=== PATIENT | female | born 1950 | race Caucasian/White ===

== ENCOUNTER 2018-03-05 12:46 | Emergency (ER) | payer MEDICARE, OTHER ==
[2018-03-05 12:54] VITALS: BP 154/70; PULSE 95; TEMP 98.2; O2SAT 97
[2018-03-05] MEDS ORDERED: ASPI-516 CHEW (13:07)
[2018-03-05] MEDS ORDERED: TEMA15CA PO (13:07)
[2018-03-05] MEDS ORDERED: ATOR10TA15 PO (13:07)
[2018-03-05] MEDS ORDERED: GABA300C5 PO (13:07)
[2018-03-05] MEDS ORDERED: VITACAP7 PO (13:07)
[2018-03-05] MEDS ORDERED: LOSA100T PO (13:07)
[2018-03-05] MEDS ORDERED: VITA100064 PO (13:07)
[2018-03-05] MEDS ORDERED: CALC1TAB12 PO (13:07)
[2018-03-05] MEDS ORDERED: DULO1CAP2 PO (13:07)
[2018-03-05] MEDS ORDERED: MULTTAB67 PO (13:07)
--- NOTE | 2018-03-05 13:17 | PD ---
HPI Chief Complaint: Fall Time Seen by Provider: 13:09 Travel History International Travel<30 days: No Contact w/Intl Traveler<30days: No Traveled to known affect area: No History of Present Illness HPI 68-year-old female presents to the emergency department for evaluation after a trip and fall that occurred just prior to arrival. Patient states she fell and hit her head. She denies LOC. Patient states she takes a baby aspirin daily, but no other anticoagulants. Current pain is 2/10, aching, no radiation. She denies any neck pain or back pain. No chest pain or abdominal pain. No vomiting. Patient has history of hypertension, hyperlipidemia, depression. No exacerbating or alleviating factors. Moderate severity. PFSH Past Medical History Hx Anticoagulant Therapy: Yes (ASA) Depression: Yes High Cholesterol: Yes Fibromyalgia: Yes Hypertension: Yes Social History Alcohol Use: Yes (3-4 BEERS/DAY) Tobacco Use: No Substance Use: No Allergies-Medications (Allergen,Severity, Reaction): Coded Allergies: Penicillins (Verified Allergy, Unknown, 03/05/18) clarithromycin (Verified Allergy, Unknown, 03/05/18) oxycodone (Verified Allergy, Unknown, 03/05/18) Reported Meds & Prescriptions Reported Meds & Active Scripts Active Reported B Complex (B-Complex Vitamins) 1 Cap 1 Cap PO DAILY Gabapentin 300 Mg Cap 300 Mg PO DAILY Vitamin D3 (Cholecalciferol) 1,000 Unit Tab 1,000 Units PO DAILY Multiple Vitamin 1 Tab 1 Tab PO DAILY Aspirin 81 Mg Chew 81 Mg CHEW DAILY Calcium 500 +D (Calcium Carbonate-Cholecalciferol) 500-400 Mg-Unit Tab 1 Tab PO BID Losartan (Losartan Potassium) 100 Mg Tab 100 Mg PO DAILY Temazepam 15 Mg Cap 15 Mg PO HS PRN Duloxetine DR (Duloxetine HCl) 30 Mg Capdr 30 Mg PO BID Atorvastatin (Atorvastatin Calcium) 10 Mg Tab 10 Mg PO HS Review of Systems Except as stated in HPI: all other systems reviewed are Neg Physical Exam Narrative GENERAL: Well-nourished, well-developed female patient, afebrile. SKIN: Focused skin assessment warm/dry. Patient is a 3 cm laceration just above the right eye. HEAD: Normocephalic. EYES: No scleral icterus. No injection or drainage. PERRLA. ENT: Mucosa pink and moist. No erythema or exudates. No uvular edema. No uvular , palatal, or tonsillar deviation. Airway patent. Nasal turbinates appear normal without nasal blood, purulent drainage or septal hematoma. Bilateral tympanic membranes clear without erythema or perforation. NECK: Supple, trachea midline. No JVD or lymphadenopathy. CARDIOVASCULAR: Regular rate and rhythm without murmurs, gallops, or rubs. RESPIRATORY: Breath sounds equal bilaterally. No accessory muscle use. Lung sounds are clear to auscultation. GASTROINTESTINAL: Abdomen soft, non-tender, nondistended. MUSCULOSKELETAL: No cyanosis, or edema. BACK: Nontender without obvious deformity. No CVA tenderness. No midline spinal tenderness. She has full rotation of the cervical spine without pain or stiffness. Data Data Last Documented VS Vital Signs Date Time Temp Pulse Resp B/P (MAP) Pulse Ox O2 Delivery O2 Flow Rate FiO2 03/05/18 12:54 98.2 95 154/70 (98) [address] Brain W/O Iv Contrast(Rout) (03/05/18 ) [facility] Medical Decision Making Medical Screen Exam Complete: Yes Emergency Medical Condition: Yes Medical Record Reviewed: Yes Interpretation(s) CT brain - CONCLUSION: No acute intracranial findings. Differential Diagnosis Closed head injury versus facial laceration versus intracranial hemorrhage Narrative Course 68-year-old female presents to the emergency department for evaluation of head injury and laceration that occurred just prior to arrival. Patient states her tetanus immunization is up-to-date. CT of the brain is ordered and pending. Patient gives verbal consent for laceration repair. CT of the brain shows no acute intracranial findings. Patient stable for discharge. She is instructed on proper wound care. The patient was discharged in stable condition with instructions, including return instructions and follow up instructions. Procedures Procedure Narrative LACERATION LOCATION: right forehead LENGTH: 3 cm NUMBER OF STITCHES/ANANTH: dermabond REPAIR: The area of the laceration was prepped with Betadine and sterilely draped. The wound was copiously irrigated and explored without evidence of foreign body, tendon injury or neurovascular injury. The wound was closed using dermabond. This was a single layer repair. A sterile dressing was applied. The patient was advised to keep the dressing clean and dry. Patient tolerated the procedure well. Diagnosis Primary Impression: Closed head injury Qualified Codes: S09.90XA - Unspecified injury of head, initial encounter Additional Impression: Facial laceration Qualified Codes: S01.81XA - Laceration without foreign body of other part of head, initial encounter Referrals: Primary Care Physician Patient Instructions: General Instructions, Head Injury (ED) Additional Instructions: Do not soak skin glue. It will come off on its own. Do not apply creams or lotions to skin glue. Do not pick at skin glue. Take antibiotic as directed. Follow-up with a primary care physician. Return to the emergency department for any acute worsening of symptoms. Med/Other Pt SpecificInfo: Prescription(s) given Scripts Cephalexin (Keflex) 500 Mg Capsule 500 MG PO Q8H for Infection for 5 Days, #15 CAP 0 Refills Prov: Gege Valadez 03/05/18 Disposition: 01 DISCHARGE HOME Condition: Stable Gege Valadez March 05, 2018 13:17
--- NOTE | 2018-03-05 15:02 | RADRPT ---
EXAM DATE/TIME: 03/05/2018 14:26 [place] COMPARISON: No previous studies available for comparison. INDICATIONS : Fell and hit right side. RADIATION DOSE: 58.03 CTDIvol (mGy) MEDICAL HISTORY : Hypercholesterolemia. Hypertension. Anticoagulant therapy. SURGICAL HISTORY : None. ENCOUNTER: Initial ACUITY: 1 day PAIN SCALE: 6/10 LOCATION: Right cranial TECHNIQUE: Multiple contiguous axial images were obtained of the head. Using automated exposure control and adj ustment of the mA and/or kV according to patient size, radiation dose was kept as low as reasonably a chievable to obtain optimal diagnostic quality images. DICOM format image data is available electro nically for review and comparison. FINDINGS: CEREBRUM: The ventricles are normal for age. No evidence of midline shift, mass lesion, hemorrhage or acute in farction. No extra-axial fluid collections are seen. POSTERIOR FOSSA: The cerebellum and brainstem are intact. The 4th ventricle is midline. The cerebellopontine angle i s unremarkable. EXTRACRANIAL: The visualized portion of the orbits is intact. SKULL: The calvaria is intact. No evidence of skull fracture. CONCLUSION: No acute intracranial findings. Dae Allen MD on March 05, 2018 at 14:59 Board Certified Radiologist. This report was verified electronically.
[2018-03-05] MEDS ORDERED: CEPH-460 PO (15:08)
== END 2018-03-05 15:17 | disposition home or self-care (01) ==
LOC: PHEFT 12:46
DX: S01.81XA Laceration without foreign body of other part of head, initial encounter (principal); W01.0XXA Fall on same level from slipping, tripping and stumbling without subsequent striking against object, initial encounter; I10 Essential (primary) hypertension; E78.5 Hyperlipidemia, unspecified; M79.7 Fibromyalgia; F32.9 Major depressive disorder, single episode, unspecified
CPT/HCPCS: 12013; 70450

== ENCOUNTER 2018-05-23 19:53 | Observation (INO) ==
--- NOTE | 2018-05-23 20:52 | ED ---
HPI General Chief Complaint: Chest Pain Stated Complaint: chest pain Time Seen by Provider: 05/23/18 20:49 History of Present Illness HPI narrative: 68-year-old female presents to the emergency department by private transportation for evaluation of chest pain that radiated into her mid scapular region back associated with shortness of breath prior to arrival to the emergency department. Patient states symptoms began while she was eating rice at a restaurant. Patient does admit to drinking alcohol. Patient has history of hypertension and dyslipidemia. Patient denies history of diabetes tobaccoism or family history of premature onset heart disease or clotting disorder. Patient denies any recent long distance travel protracted bedrest or surgical procedure. Patient denies history of esophageal spasm reflux esophagitis gastritis peptic ulcer disease or gallbladder disease. Patient states it has been several years since she had a cardiac evaluation. Patient has moved here from [place] within the past year and is followed by primary care provider but has no specialists or corrugator supervisor for follow-up. Patient states that pain lasted 4-5 minutes. Pain was 8-10/10 in intensity. Pain resolved spontaneously. Patient was given aspirin 324 mg by EMS prior to arrival to the emergency department. Patient states in route to the hospital she did have a 1-2 minute episode of chest pain but did not receive sublingual nitro glycerin. Patient denies any recent injury or fall or febrile illness. Patient had no nausea or vomiting. Patient did have some mild diaphoresis. Complete Quality Measures for STEMI Alert Patients Related Data Home Medications Medication Instructions Recorded Confirmed aspirin [Aspirin Low Dose] 81 mg PO DAILY 05/23/18 05/23/18 atorvastatin 10 mg PO DAILY 05/23/18 05/23/18 duloxetine 60 mg PO DAILY 05/23/18 05/23/18 losartan 100 mg PO DAILY 05/23/18 05/23/18 Allergies Allergy/AdvReac Type Severity Reaction Status Date / Time clarithromycin Allergy Unknown Nausea Verified 05/23/18 20:26 oxycodone Allergy Unknown Nausea Verified 05/23/18 20:26 Penicillins Allergy Unknown Nausea Verified 05/23/18 20:26 Review of Systems Except as stated in HPI: all other systems reviewed are negative [facility] Medical History Medical History Fibromyalgia (Acute) Herniated disc (Acute) Surgical History Surgical History No history of previous surgery (Acute) Social History Social History Recent Travel in [facility] within the Last 8 Weeks: No Recent Out of Country Travel within the Last 8 Weeks: No Exam Narrative Exam Narrative: GENERAL: Well-nourished, well-developed patient. No acute distress no respiratory distress. GCS 15. SKIN: Focused skin assessment warm/dry. HEAD: Normocephalic. EYES: No scleral icterus. No injection or drainage. NECK: Supple, trachea midline. No JVD or lymphadenopathy. CARDIOVASCULAR: Regular rate and rhythm without murmurs, gallops, or rubs. RESPIRATORY: Breath sounds equal bilaterally. No accessory muscle use. GASTROINTESTINAL: Abdomen soft, non-tender, nondistended. MUSCULOSKELETAL: No cyanosis, or edema. BACK: Nontender without obvious deformity. No CVA tenderness. Course Initial Documented Vital Signs Temperature 98.3 F 05/23/18 20:26 Pulse Rate 112 H 05/23/18 20:26 Respiratory Rate 18 05/23/18 20:26 Blood Pressure 163/115 H 05/23/18 20:26 Pulse Oximetry 98 05/23/18 20:26 Last Documented Vital Signs Temperature 98.3 F 05/23/18 20:26 Pulse Rate 78 05/23/18 23:00 Respiratory Rate 24 05/23/18 23:00 Blood Pressure 158/74 H 05/23/18 23:00 Pulse Oximetry 98 05/24/18 02:48 Medical Decision Making MDM Narrative Medical decision making narrative: 68-year-old female with retrosternal chest pain radiating into the mid scapular region 8-10/10 intensity with associated shortness of breath and diaphoresis with risk factors of age 68, hypertension, and dyslipidemia. Plan will be to evaluate for etiology of prior episodes of chest pain that has resolved now but occurred prior to arrival to the emergency department. Patient is currently asymptomatic. At 1:42 AM patient remains asymptomatic renal insufficiency noted by lab work mild anemia cardiac enzymes are normal range chest x-ray was mildly abnormal with recommendation for CT and in view of chest pain with referred mid scapular pain CTA thorax and abdomen was performed to evaluate for aneurysm and dissection; per reading radiologist CT thorax and abdomen negative for dissection or aneurysm and otherwise unremarkable. This patient's risk factor being age 68 in a female with hypertension dyslipidemia recommendation is for patient to be admitted to chest pain center per protocol. Differential Diagnosis Differential Diagnosis: Chest pain, atypical chest pain, esophageal spasm, ACS, LA, aortic dissection, PE Medical Records Medical records reviewed: Yes I reviewed the patient's medical records. Lab Data Result diagrams: 05/23/18 21:00 05/23/18 21:00 Lab Results 05/23/18 05/23/18 05/23/18 Range/Units 21:00 21:00 21:00 WBC 9.9 (4.0-11.0) th/mm3 RBC 3.97 L (4.00-5.30) mil/mm3 Hgb 11.3 L (11.6-15.3) gm/dL Hct 34.5 L (35.0-46.0) % MCV 86.9 (80.0-100.0) fL MCH 28.4 (27.0-34.0) pg MCHC 32.7 (32.0-36.0) % RDW 14.6 (11.6-17.2) % Plt Count 267 (150-450) th/mm3 MPV 8.6 (7.0-11.0) fL Neut % (Auto) 68.1 (16.0-70.0) % Lymph % (Auto) 23.3 (9.0-44.0) % [place] % (Auto) 5.9 (0.0-8.0) % Eos % (Auto) 2.2 (0.0-4.0) % Baso % (Auto) 0.5 (0.0-2.0) % Neut # (Auto) 6.7 (1.8-7.7) th/mm3 Lymph # (Auto) 2.3 (1.0-4.8) th/mm3 [place] # (Auto) 0.6 (0.0-0.9) th/mm3 Eos # (Auto) 0.2 (0.0-0.4) th/mm3 Baso # (Auto) 0.0 (0.0-0.2) th/mm3 WBC Differential . Differential Comment Auto diff final PT 9.8 (9.8-11.6) sec INR 1.0 Ratio APTT 23.5 L (24.3-30.1) sec Sodium 137 (136-145) meq/L Potassium 4.3 (3.5-5.1) meq/L Chloride 104 (98-107) meq/L Carbon Dioxide 27.4 (21.0-32.0) meq/L Anion Gap 6 (5-15) meq/L BUN 24 H (7-18) mg/dL Creatinine 1.02 H (0.50-1.00) mg/dL Estimated GFR 54 L (>89) mL/min Random Glucose 101 (74-106) mg/dL Calcium 8.6 (8.5-10.1) mg/dL Magnesium 2.2 (1.5-2.5) mg/dL Total Bilirubin 0.2 (0.2-1.0) mg/dL AST 21 (15-37) U/L ALT 27 (10-53) U/L Alkaline Phosphatase 76 (45-117) U/L Total Creatine Kinase 131 (26-192) U/L CK-MB (CK-2) 1.1 (0.5-3.6) ng/mL Troponin I Less than 0.02 L (0.02-0.05) ng/mL Total Protein 8.1 (6.4-8.2) g/dL Albumin 4.0 (3.4-5.0) g/dL Lipase 235 (73-393) U/L Serum Alcohol Less than 3 (0-5) mg/dL 05/24/18 Range/Units 00:15 WBC (4.0-11.0) th/mm3 RBC (4.00-5.30) mil/mm3 Hgb (11.6-15.3) gm/dL Hct (35.0-46.0) % MCV (80.0-100.0) fL MCH (27.0-34.0) pg MCHC (32.0-36.0) % RDW (11.6-17.2) % Plt Count (150-450) th/mm3 MPV (7.0-11.0) fL Neut % (Auto) (16.0-70.0) % Lymph % (Auto) (9.0-44.0) % [place] % (Auto) (0.0-8.0) % Eos % (Auto) (0.0-4.0) % Baso % (Auto) (0.0-2.0) % Neut # (Auto) (1.8-7.7) th/mm3 Lymph # (Auto) (1.0-4.8) th/mm3 [place] # (Auto) (0.0-0.9) th/mm3 Eos # (Auto) (0.0-0.4) th/mm3 Baso # (Auto) (0.0-0.2) th/mm3 WBC Differential Differential Comment PT (9.8-11.6) sec INR Ratio APTT (24.3-30.1) sec Sodium (136-145) meq/L Potassium (3.5-5.1) meq/L Chloride (98-107) meq/L Carbon Dioxide (21.0-32.0) meq/L Anion Gap (5-15) meq/L BUN (7-18) mg/dL Creatinine (0.50-1.00) mg/dL Estimated GFR (>89) mL/min Random Glucose (74-106) mg/dL Calcium (8.5-10.1) mg/dL Magnesium (1.5-2.5) mg/dL Total Bilirubin (0.2-1.0) mg/dL AST (15-37) U/L ALT (10-53) U/L Alkaline Phosphatase (45-117) U/L Total Creatine Kinase 113 (26-192) U/L CK-MB (CK-2) 1.0 (0.5-3.6) ng/mL Troponin I Less than 0.02 L (0.02-0.05) ng/mL Total Protein (6.4-8.2) g/dL Albumin (3.4-5.0) g/dL Lipase (73-393) U/L Serum Alcohol (0-5) mg/dL Imaging Data Radiologist's impression: Chest X-Ray 05/23/18 20:53 CONCLUSION: Increased density at the medial mid right chest likely related to ectatic vessels. An underlying process cannot be excluded. This area could be further evaluated at some point with a CT examination the chest. Thoracic Aorta CT 05/24/18 00:00 CONCLUSION: 1. Negative exam. 2. Specifically, the thoracoabdominal aorta is normal in caliber throughout its length with no aneurysmal disease or dissection. Arch, mesenteric and renal vessels are patent. ECG Data Attestation: I personally reviewed and interpreted this ECG as follows: Prior ECG tracings: not available for review Interpretation: EKG sinus tachycardia rate 104 left atrial enlargement normal axis artifact is present at baseline no acute ST elevation or injury pattern change noted Discharge Plan Discharge Disposition Patient Disposition: 30 Still Patient Discharge Condition Condition: Stable Discharge Details Diagnosis: Chest pain Physicians Team ED Provider: Raegan Bonilla Primary Care Provider: Alma Lazar Attending Provider: Laureen Olivas Status ED Status: Admitted Observation Patient
[2018-05-23 21:19] LABS: Baso % (Auto) 0.5 % (0.0-2.0); Eos # (Auto) 0.2 th/mm3 (0.0-0.4); Eos % (Auto) 2.2 % (0.0-4.0); Hematocrit 34.5 % (35.0-46.0); Hemoglobin 11.3 gm/dL (11.6-15.3); Lymph # (Auto) 2.3 th/mm3 (1.0-4.8); Lymph % (Auto) 23.3 % (9.0-44.0); Mean Corpuscular HGB Conc 32.7 % (32.0-36.0); Mean Corpuscular Hemoglobin 28.4 pg (27.0-34.0); Mean Corpuscular Volume 86.9 fL (80.0-100.0); Mean Platelet Volume 8.6 fL (7.0-11.0); Mono # (Auto) 0.6 th/mm3 (0.0-0.9); Mono % (Auto) 5.9 % (0.0-8.0); Neut # (Auto) 6.7 th/mm3 (1.8-7.7); Neut % (Auto) 68.1 % (16.0-70.0); Platelet Count 267 th/mm3 (150-450); Red Blood Count 3.97 mil/mm3 (4.00-5.30); Red Cell Distribution Width 14.6 % (11.6-17.2); White Blood Count 9.9 th/mm3 (4.0-11.0)
[2018-05-23 21:30] LABS: Activated Partial Thrombo Time 23.5 sec (24.3-30.1); Prothrombin Time 9.8 sec (9.8-11.6)
--- NOTE | 2018-05-23 21:35 | XR ---
EXAM DATE: 05/23/2018 9:16 PM EDT AGE/SEX: 68 years / Female INDICATIONS: Chest pain. CLINICAL DATA: This is the patient's initial encounter. Patient reports that signs and symptoms have been present for 1 day and indicates a pain score of 6/10. MEDICAL/SURGICAL HISTORY: None. None. COMPARISON: No prior exams available for comparison. FINDINGS: The heart size is normal. There is increased density at the medial right mid chest. The lungs themsel ves appear grossly clear. No effusion is seen. CONCLUSION: Increased density at the medial mid right chest likely related to ectatic vessels. An underlying proc ess cannot be excluded. This area could be further evaluated at some point with a CT examination the chest. Electronically signed by: Elfego Delarosa MD 05/23/2018 9:34 PM EDT
[2018-05-23 21:39] LABS: Anion Gap 6 meq/L (5-15); Aspartate Aminotransferase 21 U/L (15-37); Blood Urea Nitrogen 24 mg/dL (7-18); Calcium 8.6 mg/dL (8.5-10.1); Carbon Dioxide 27.4 meq/L (21.0-32.0); Chloride 104 meq/L (98-107); Glomerular Filtration Rate 54 mL/min (>89); Glucose,Random 101 mg/dL (74-106); Lipase 235 U/L (73-393); Magnesium 2.2 mg/dL (1.5-2.5); Potassium 4.3 meq/L (3.5-5.1); Sodium 137 meq/L (136-145)
[2018-05-23 21:43] LABS: Alanine Aminotransferase 27 U/L (10-53); Alkaline Phosphatase 76 U/L (45-117); Creatine Kinase 131 U/L (26-192); Total Protein 8.1 g/dL (6.4-8.2)
[2018-05-23 22:06] LABS: Creatine Kinase MB 1.1 ng/mL (0.5-3.6)
--- NOTE | 2018-05-24 00:54 | CT ---
EXAM DATE: 05/24/2018 12:46 AM EDT AGE/SEX: 68 years / Female INDICATIONS: Chest and back pain. CLINICAL DATA: This is the patient's initial encounter. Patient reports that signs and symptoms have been present for 1 day and indicates a pain score of 6/10. MEDICAL/SURGICAL HISTORY: None. None. RADIATION DOSE: 8.72 CTDI (mGy) COMPARISON: No prior exams available for comparison. TECHNIQUE: Volumetric scanning was performed using a multi-row detector CT scanner during bolus infu makenna of 100 ml Omnipaque 350 (iohexol) nonionic water-soluble contrast as a single exam dose. The d anthony was post processed with a variety of visualization algorithms including full volume maximum inten sity projection, multi-planar sliding thin slab reformation, curved planar reformation, and surface r endering techniques. Using automated exposure control and adjustment of the mA and/or kV according t o patient size, radiation dose was kept as low as reasonably achievable to obtain optimal diagnostic quality images. DICOM format image data is available electronically for review and comparison. FINDINGS: Thoracic aorta: Thoracic aorta is normal in caliber throughout its length with the descending measuri ng 3.2 cm in diameter. All 3 arch vessels are patent with a standard arch configuration. Abdominal aorta: The abdominal aorta is normal in caliber throughout its length without aneurysmal di sease. There is a single left renal artery with 3 small accessory vessels on the right. All 4 are pat ent. Mesenteric vessels are patent. Pelvis: Minimal athetotic calcification of the iliac vessels are patent without aneurysmal disease. Miscellaneous: Pulmonary arteries are patent. Lungs are clear. The diaphragm, the liver, spleen, panc reas, adrenals and kidneys are all radiographically normal. Pelvic viscera is all intact as well. CONCLUSION: 1. Negative exam. 2. Specifically, the thoracoabdominal aorta is normal in caliber throughout its length with no aneur ysmal disease or dissection. Arch, mesenteric and renal vessels are patent. Electronically signed by: Hunter Duong MD 05/24/2018 12:52 AM EDT
[2018-05-24 01:05] LABS: Creatine Kinase 113 U/L (26-192)
[2018-05-24] MEDS ORDERED: Acetaminophen 500 MG Tablet PO PRN (01:39)
[2018-05-24 05:52] LABS: Creatine Kinase 108 U/L (26-192)
[2018-05-24] MEDS ORDERED: Aspirin 325 MG Tablet PO SCH (09:00)
[2018-05-24] MEDS ORDERED: LORazepam 1 MG Tablet PO PRN (09:10)
[2018-05-24] MEDS ORDERED: Haloperidol Inj 5 MG/ML Ampul IV.PUSH PRN (09:10)
[2018-05-24] MEDS ORDERED: Duloxetine 60 MG DR Capsule PO SCH (09:15)
--- NOTE | 2018-05-24 09:25 | P.HP ---
History of Present Illness Primary Care Physician: Alma Lazar MD History of Present Illness: This is a 68-year-old female with a history of hypertension and hyper lipidemia. She was brought into the emergency room by EMS because of chest discomfort. States she was having dinner at a French restaurant when she developed chest and upper back tightness scale of 8 out of 10 associated with shortness of breath. There was no radiation of discomfort, nausea, vomiting, dizziness and diaphoresis. It lasted for 5 minutes. En route to the hospital she had another episode that lasted for 2 minutes and was given aspirin 1. Patient also denies leg pain and swelling. Denies history of coronary artery disease with negative stress test over a year ago. She has history of hypertension and hyperlipidemia on medications. Underwent thoracic aortic CTA with no dissection or aneurysm seen. She has been ruled out for LA with negative cardiac enzymes. EKG without acute ST-T changes. She will undergo EKG stress test discussed with chest pain center. Patient is agreeable with the plan and will remain n.p.o. at this time. - Diagnosis (1) Chest pain Review of Systems All other systems reviewed negative except as stated in HPI PMFSH - History History Provided By: Patient - Medical History Medical History: Medical History (Last Reviewed 05/23/18 @ 20:50 by Raegan Bonilla MD) Fibromyalgia Herniated disc - Surgical History Surgical History: Surgical History (Last Reviewed 05/23/18 @ 20:50 by Raegan Bonilla MD) No history of previous surgery - Family History Family History: Family History (Last Updated 05/24/18 @ 09:15 by Myron Chew MD) Other Family history non-contributory - Tobacco History Smoking Status: Never smoker - Alcohol History How Often Do You Have a Drink Containing Alcohol: 2 to 4 times a month - Substance Use History Substance History: No History of Abuse - Travel History Recent Travel in the [place] Within the Last 8 Weeks: No Recent Travel Out of the Country Within the Last 8 Weeks: No - Immunization History Tetanus Immunization: Unsure Hx Influenza Vaccine This Season: No Medications and Allergies Active Medications: Active Medications Acetaminophen (Tylenol) 500 mg PO Q4H PRN PRN Reason: HEADACHE Aspirin (Aspirin) 325 mg PO DAILY ROSA Atorvastatin Calcium (Lipitor) 10 mg PO DAILY ROSA Duloxetine HCl (Cymbalta) 60 mg PO DAILY ROSA Flumazenil (Romazecon Inj) 0.2 mg IV.PUSH Q1M PRN PRN Reason: OVERSEDATION Haloperidol Lactate (Haldol Inj) 1 mg IV.PUSH Q15M PRN PRN Reason: for severe agitation Lorazepam (Ativan) 1 mg PO Q4H PRN PRN Reason: for CIWA 8-10 Lorazepam (Ativan Inj) 2 mg IV.PUSH Q2H PRN PRN Reason: for CIWA 11-14 Lorazepam (Ativan Inj) 2 mg IV.PUSH Q1H PRN PRN Reason: for CIWA 15-20 Lorazepam (Ativan Inj) 2 mg IV.PUSH Q15M PRN PRN Reason: for CIWA > 20 Lorazepam (Ativan Inj) 1 mg IV.PUSH Q4H PRN PRN Reason: for CIWA 8-10 Lorazepam (Ativan) 2 mg PO Q2H PRN PRN Reason: for CIWA 11-14 Nitroglycerin (Nitrostat Sl) 0.4 mg SL Q5M PRN PRN Reason: CHEST PAIN Non-Formulary Medication (Losartan [Losartan]) 100 mg PO DAILY ROSA Ondansetron HCl (Zofran Inj) 4 mg IV.PUSH Q6H PRN PRN Reason: NAUSEA Sodium Chloride (Ns Flush) 2 ml IV.FLUSH UNSCH PRN PRN Reason: FLUSH AFTER USING IV ACCESS Sodium Chloride (Ns Flush) 2 ml IV.FLUSH BID ROSA Sodium Chloride (Ns Flush) 2 ml IV.FLUSH PRN PRN PRN Reason: FLUSH AFTER USING IV ACCESS Allergies Allergy/AdvReac Type Severity Reaction Status Date / Time clarithromycin Allergy Unknown Nausea Verified 05/23/18 20:26 oxycodone Allergy Unknown Nausea Verified 05/23/18 20:26 Penicillins Allergy Unknown Nausea Verified 05/23/18 20:26 Home Medications Medication Instructions Recorded Confirmed Type aspirin [Aspirin Low Dose] 81 mg PO DAILY 05/23/18 05/23/18 History atorvastatin 10 mg PO DAILY 05/23/18 05/23/18 History duloxetine 60 mg PO DAILY 05/23/18 05/23/18 History losartan 100 mg PO DAILY 05/23/18 05/23/18 History Exam Vital signs: Vital Signs 05/23/18 20:26 05/23/18 21:00 05/23/18 22:00 Temperature 98.3 F Pulse Rate 112 H 80 80 Respiratory Rate 18 22 22 Blood Pressure 163/115 H 159/80 H 146/69 H Pulse Oximetry 98 100 100 05/23/18 23:00 05/24/18 00:00 05/24/18 02:00 Temperature Pulse Rate 78 78 80 Respiratory Rate 24 22 20 Blood Pressure 158/74 H 152/67 H 129/62 Pulse Oximetry 05/24/18 02:48 05/24/18 04:00 05/24/18 07:00 Temperature Pulse Rate 76 72 Respiratory Rate 22 17 Blood Pressure 133/64 161/73 H Pulse Oximetry 98 05/24/18 08:00 Temperature Pulse Rate 70 Respiratory Rate 15 Blood Pressure 174/72 H Pulse Oximetry Intake & Output 05/23/18 05/24/18 05/24/18 18:59 06:59 18:59 Weight 86.183 kg Narrative: GENERAL: Well-developed, obese in no distress SKIN: Warm and dry. HEAD: Atraumatic. Normocephalic. EYES: Pupils equal and round. No scleral icterus. No injection or drainage. ENT: No nasal bleeding or discharge. Mucous membranes pink and moist. NECK: Trachea midline. No JVD. CARDIOVASCULAR: Regular rate and rhythm. RESPIRATORY: No accessory muscle use. Clear to auscultation. Breath sounds equal bilaterally. She has tender chest wall and upper back GASTROINTESTINAL: Abdomen soft, non-tender, nondistended. MUSCULOSKELETAL: Extremities without clubbing, cyanosis, or edema. No obvious deformities. NEUROLOGICAL: Awake and alert. No obvious cranial nerve deficits. Motor grossly within normal limits. Five out of 5 muscle strength in the arms and legs. Normal speech. PSYCHIATRIC: Appropriate mood and affect; insight and judgment normal. Results - Labs CBC & Chem 7: 05/23/18 21:00 05/23/18 21:00 Labs: Laboratory Results - last 24 hr 05/23/18 05/23/18 05/23/18 21:00 21:00 21:00 WBC 9.9 RBC 3.97 L Hgb 11.3 L Hct 34.5 L MCV 86.9 MCH 28.4 MCHC 32.7 RDW 14.6 Plt Count 267 MPV 8.6 Neut % (Auto) 68.1 Lymph % (Auto) 23.3 Island % (Auto) 5.9 Eos % (Auto) 2.2 Baso % (Auto) 0.5 Neut # (Auto) 6.7 Lymph # (Auto) 2.3 Island # (Auto) 0.6 Eos # (Auto) 0.2 Baso # (Auto) 0.0 WBC Differential . Differential Comment Auto diff final PT 9.8 INR 1.0 APTT 23.5 L Sodium 137 Potassium 4.3 Chloride 104 Carbon Dioxide 27.4 Anion Gap 6 BUN 24 H Creatinine 1.02 H Estimated GFR 54 L Random Glucose 101 Calcium 8.6 Magnesium 2.2 Total Bilirubin 0.2 AST 21 ALT 27 Alkaline Phosphatase 76 Total Creatine Kinase 131 CK-MB (CK-2) 1.1 Troponin I Less than 0.02 L Total Protein 8.1 Albumin 4.0 Lipase 235 Serum Alcohol Less than 3 05/24/18 05/24/18 00:15 04:45 WBC RBC Hgb Hct MCV MCH MCHC RDW Plt Count MPV Neut % (Auto) Lymph % (Auto) Island % (Auto) Eos % (Auto) Baso % (Auto) Neut # (Auto) Lymph # (Auto) Island # (Auto) Eos # (Auto) Baso # (Auto) WBC Differential Differential Comment PT INR APTT Sodium Potassium Chloride Carbon Dioxide Anion Gap BUN Creatinine Estimated GFR Random Glucose Calcium Magnesium Total Bilirubin AST ALT Alkaline Phosphatase Total Creatine Kinase 113 108 CK-MB (CK-2) 1.0 Troponin I Less than 0.02 L Less than 0.02 L Total Protein Albumin Lipase Serum Alcohol - Imaging Impressions Chest X-Ray 05/23/18 20:53 CONCLUSION: Increased density at the medial mid right chest likely related to ectatic vessels. An underlying process cannot be excluded. This area could be further evaluated at some point with a CT examination the chest. Thoracic Aorta CT 05/24/18 00:00 CONCLUSION: 1. Negative exam. 2. Specifically, the thoracoabdominal aorta is normal in caliber throughout its length with no aneurysmal disease or dissection. Arch, mesenteric and renal vessels are patent. Caprini VTE Risk Assessment Caprini VTE Risk Assessment: Moderate/High Risk (score >= 2) Caprini Risk Assessment Model: Point Value = 1 Point Value = 2 Point Value = 3 Point Value = 5 Age 41-60 Minor surgery BMI > 25 kg/m2 Swollen legs Varicose veins or History of unexplained or recurrent spontaneous Oral contraceptives or hormone replacement Sepsis (< 1 month) Serious lung disease, including pneumonia (< 1 month) Abnormal pulmonary function Acute myocardial infarction Congestive heart failure (< 1 month) History of inflammatory bowel disease Medical patient at bed rest Age 61-74 Arthroscopic surgery Major open surgery (> 45 min) Laparoscopic surgery (> 45 min) Malignancy Confined to bed (> 72 hours) Immobilizing plaster cast Central venous access Age >= 75 History of VTE Family history of VTE Factor V Leiden Prothrombin [id number] Lupus anticoagulant Anticardiolipin antibodies Elevated serum homocysteine Heparin-induced thrombocytopenia Other congenital or acquired thrombophilia Stroke (< 1 month) Elective arthroplasty Hip, pelvis, or leg fracture Acute spinal cord injury (< 1 month) Prophylaxis Regimen: Total Risk Factor Score Risk Level Prophylaxis Regimen 0-1 Low Early ambulation 2 Moderate Order ONE of the following: *Sequential Compression Device (SCD) *Heparin 5000 units SQ BID 3-4 Higher Order ONE of the following medications: *Heparin 5000 units SQ TID *Enoxaparin/Lovenox 40 mg SQ daily (WT < 150 kg, CrCl > 30 mL/min) *Enoxaparin/Lovenox 30 mg SQ daily (WT < 150 kg, CrCl > 10-29 mL/min) *Enoxaparin/Lovenox 30 mg SQ BID (WT < 150 kg, CrCl > 30 mL/min) AND/OR *Sequential Compression Device (SCD) 5 or more Highest Order ONE of the following medications: *Heparin 5000 units SQ TID (Preferred with Epidurals) *Enoxaparin/Lovenox 40 mg SQ daily (WT < 150 kg, CrCl > 30 mL/min) *Enoxaparin/Lovenox 30 mg SQ daily (WT < 150 kg, CrCl > 10-29 mL/min) *Enoxaparin/Lovenox 30 mg SQ BID (WT < 150 kg, CrCl > 30 mL/min) AND *Sequential Compression Device (SCD) Assessment and Plan - Assessment (1) Chest pain Code(s): R07.9 - Chest pain, unspecified Status: Acute - Plan This is a 68-year-old female who was brought into the emergency room by EMS because of chest discomfort. States she was having dinner at a French restaurant when she developed chest and upper back tightness scale of 8 out of 10 associated with shortness of breath. There was no radiation of discomfort, nausea, vomiting, dizziness and diaphoresis. It lasted for 5 minutes. En route to the hospital she had another episode that lasted for 2 minutes and was given aspirin 1. Patient also denies leg pain and swelling. Denies history of coronary artery disease with negative stress test over a year ago. She has history of hypertension and hyperlipidemia on medications. Underwent thoracic aortic CTA with no dissection or aneurysm seen. She has been ruled out for LA with negative cardiac enzymes. EKG without acute ST-T changes. She will undergo EKG stress test discussed with chest pain center. Patient is agreeable with the plan and will remain n.p.o. at this time. Continue aspirin. Differential diagnosis GERD versus musculoskeletal patient has tender chest and back. Antireflux mechanics as discussed with patient. Consider PPI. FLORI suspect. Patient nonoliguric. Received contrast but will start IV hydration and repeat BMP today and tomorrow. Avoid nephrotoxins HTN. Uncontrolled restart home medication losartan and continue to monitor with as needed medications HLD. Restart Lipitor ETOH abuse. Counseled. [facility] protocol DVT prophylaxis. Subcu heparin Discharge Planning: Discharge patient to home possibly today pending stress test and repeat BMP Condition on discharge: Improved Regular Diet as tolerated Ad Kristin activity Rx written: May be PPI Follow-up with primary care physician
[2018-05-24] MEDS ORDERED: Sod Chloride 0.9% Inj 1,000 ML IV.CONT SCH (09:30)
--- NOTE | 2018-05-24 09:57 | ECG ---
Date Performed: 05/24/2018 Time Performed: 04:53:44 PTAGE: 68 years EKG: Sinus rhythm NORMAL ECG PREVIOUS TRACING : 05/24/2018 00.20 DOCTOR: Renard Bowden Interpretating Date/Time 05/24/2018 09:55:31
--- NOTE | 2018-05-24 10:04 | ECG ---
Date Performed: 05/24/2018 Time Performed: 00:20:37 PTAGE: 68 years EKG: Sinus rhythm NORMAL ECG PREVIOUS TRACING : 05/23/2018 20.23 DOCTOR: Renard Bowden Interpretating Date/Time 05/24/2018 10:02:49
--- NOTE | 2018-05-24 10:09 | ECG ---
Date Performed: 05/23/2018 Time Performed: 20:23:50 PTAGE: 68 years EKG: SINUS TACHYCARDIA POSSIBLE LEFT ATRIAL ENLARGEMENT ABNORMAL RHYTHM ECG NO PREVIOUS TRACING DOCTOR: Renard Bowden Interpretating Date/Time 05/24/2018 10:07:09
[2018-05-24] MEDS ORDERED: Heparin - SQ 10,000 UNITS/ML Vial SQ SCH (10:30)
--- NOTE | 2018-05-24 10:30 | TR ---
Date Performed: 05/24/2018 Time Performed: 09:35:01 DOCTOR: Yadira Alcantara DRUG LIST: CLINICAL HISTORY: REASON FOR TEST: REASON FOR ENDING: OBSERVATION: CONCLUSION: Lucian protocol completed. Stopped sec to exceeding target heart rate and leg fatigue . Maximum QP=687 Target HR Achieved=92% Maximum XX=427/90 Total Exercise Time=4:52. No reprod chest d iscomfort. St depression with upsloping st segments. Fair exercise tolerance. No ectopy. Recovery juan manuel ck and unremarkable. COMMENTS: No ischemia
[2018-05-24 11:54] LABS: Baso % (Auto) 0.3 % (0.0-2.0); Eos # (Auto) 0.2 th/mm3 (0.0-0.4); Eos % (Auto) 2.2 % (0.0-4.0); Hematocrit 33.5 % (35.0-46.0); Lymph # (Auto) 1.5 th/mm3 (1.0-4.8); Lymph % (Auto) 20.7 % (9.0-44.0); Mean Corpuscular HGB Conc 32.8 % (32.0-36.0); Mean Corpuscular Hemoglobin 28.7 pg (27.0-34.0); Mean Corpuscular Volume 87.5 fL (80.0-100.0); Mean Platelet Volume 8.7 fL (7.0-11.0); Mono # (Auto) 0.4 th/mm3 (0.0-0.9); Neut # (Auto) 5.1 th/mm3 (1.8-7.7); Neut % (Auto) 71.8 % (16.0-70.0); Platelet Count 241 th/mm3 (150-450); Red Blood Count 3.83 mil/mm3 (4.00-5.30); Red Cell Distribution Width 14.6 % (11.6-17.2); White Blood Count 7.2 th/mm3 (4.0-11.0)
[2018-05-24 12:16] LABS: Potassium 4.2 meq/L (3.5-5.1)
[2018-05-24 12:17] LABS: Calcium 8.6 mg/dL (8.5-10.1); Carbon Dioxide 29.8 meq/L (21.0-32.0)
--- NOTE | 2018-05-25 16:08 | CT ---
This report includes an Addendum and supersedes previous reports for this exam. Not mentioned above, there is a very focal, patchy area of a "tree in bud "density laterally in the right upper lung. Findings are nonspecific but could represent a small area of atypical infiltrate such as MARIOLA. Recommend noncontrasted CT scan of the chest follow-up in 3 months to ensure stability. Electronically signed by: Hunter Duong MD 05/24/2018 1:20 AM EDT Addendum Dictated By: Hunter Duong MD EXAM DATE: 05/24/2018 12:46 AM EDT AGE/SEX: 68 years / Female INDICATIONS: Chest and back pain. CLINICAL DATA: This is the patient's initial encounter. Patient reports that signs and symptoms have been present for 1 day and indicates a pain score of 6/ 10. MEDICAL/SURGICAL HISTORY: None. None. RADIATION DOSE: 8.72 CTDI (mGy) COMPARISON: No prior exams available for comparison. TECHNIQUE: Volumetric scanning was performed using a multi-row detector CT scanner during bolus infusion of 100 ml Omnipaque 350 (iohexol) nonionic water- soluble contrast as a single exam dose. The data was post processed with a variety of visualization algorithms including full volume maximum intensity projection, multi-planar sliding thin slab reformation, curved planar reformation, and surface rendering techniques. Using automated exposure control and adjustment of the mA and/or kV according to patient size, radiation dose was kept as low as reasonably achievable to obtain optimal diagnostic quality images. DICOM format image data is available electronically for review and comparison. FINDINGS: Thoracic aorta: Thoracic aorta is normal in caliber throughout its length with the descending measuring 3.2 cm in diameter. All 3 arch vessels are patent with a standard arch configuration. Abdominal aorta: The abdominal aorta is normal in caliber throughout its length without aneurysmal disease. There is a single left renal artery with 3 small accessory vessels on the right. All 4 are patent. Mesenteric vessels are patent. Pelvis: Minimal athetotic calcification of the iliac vessels are patent without aneurysmal disease. Miscellaneous: Pulmonary arteries are patent. Lungs are clear. The diaphragm, the liver, spleen, pancreas, adrenals and kidneys are all radiographically normal. Pelvic viscera is all intact as well. CONCLUSION: 1. Negative exam. 2. Specifically, the thoracoabdominal aorta is normal in caliber throughout its length with no aneurysmal disease or dissection. Arch, mesenteric and renal vessels are patent. Electronically signed by: Hunter Duong MD 05/24/2018 12:52 AM EDT [place]
== END 2018-05-24 15:23 | disposition home or self-care (01) ==
LOC: NEDA 19:53 → NEPC 19:53 → NEPGCP 19:53 → NEDH 05-24 07:29 → NEPGCP 05-24 12:21
PROVIDERS: ADMIT Internal Medicine; ATTEND Internal Medicine